=== PATIENT | male | born 1970 | race Caucasian/White ===

== ENCOUNTER 2024-04-30 18:01 | Emergency (ER) | payer BC ==
[2024-04-30 19:35] LABS: BASOPHILS ABSOLUTE AUTO 0.05 K/uL (0.00-0.20); BASOPHILS PERCENT AUTO 0.5 % (0.0-1.0); EOSINOPHILS ABSOLUTE AUTO 0.43 K/uL (0.00-0.45); EOSINOPHILS PERCENT AUTO 4.4 % (0.0-6.0); HEMATOCRIT 51.1 % (42.0-52.0); HEMOGLOBIN 17.2 g/dL (14.0-18.0); IMMATURE GRAN ABSOLUTE AUTO 0.03 K/uL (0.00-0.05); IMMATURE GRAN PERCENT AUTO 0.3 % (0.0-0.4); LYMPHOCYTES ABSOLUTE AUTO 2.83 K/uL (1.00-4.80); LYMPHOCYTES PERCENT AUTO 29.1 % (24.0-44.0); MEAN CORPUSCULAR HGB CONC 33.7 g/dL (32.0-36.0); MEAN PLATELET VOLUME 10.6 fL (9.4-12.4); MONOCYTES ABSOLUTE AUTO 0.62 K/uL (0.00-0.80); MONOCYTES PERCENT AUTO 6.4 % (0.0-8.0); NEUTROPHILS ABSOLUTE AUTO 5.75 K/uL (1.80-7.70); NEUTROPHILS PERCENT AUTO 59.3 % (41.0-71.0); PLATELET COUNT,PLT 251 K/uL (150-400); RED BLOOD CELL COUNT 5.94 M/uL (4.52-5.90); WHITE BLOOD CELL COUNT,WBC 9.71 K/uL (3.9-11.3)
[2024-04-30] MEDS: Lidocaine 4% 1 each Patch TOP ONE (19:47)
[2024-04-30] MEDS: Dexamethasone 4 MG Tab PO ONE (19:47)
[2024-04-30] MEDS: Acetaminophen 500 MG Tab PO ONE (19:49)
[2024-04-30] MEDS: Ketorolac 30 MG/ML SDV IM ONE (19:50)
[2024-04-30] MEDS: Orphenadrine 60 MG/2 ML Inj IM ONE (19:53)
[2024-04-30 19:57] LABS: A/G RATIO 1.1 (0.9-1.6); ALBUMIN 4.2 g/dL (3.4-5.0); BILIRUBIN TOTAL 0.3 mg/dL (0.2-1.0); CALCIUM 9.3 mg/dL (8.5-10.1); CARBON DIOXIDE,CO2 25.2 mmol/L (21.0-32.0); CREATININE 1.4 mg/dL (0.8-1.3); EST CRCL DRUG DOSING (CG) 61.02 mL/min; POTASSIUM,K 3.8 mmol/L (3.5-5.1)
== END 2024-04-30 21:35 | disposition home or self-care (01) ==
LOC: MW.ED 18:01
DX: M43.6 Torticollis (principal); M62.838 Other muscle spasm; I10 Essential (primary) hypertension; R79.89 Other specified abnormal findings of blood chemistry; Z79.899 Other long term (current) drug therapy
CPT/HCPCS: 36415; 80053; 85025; 96372; 99283; A9270; J1885; J2360; J8540